=== PATIENT | female | born 2000 | race Two or more races ===

== ENCOUNTER 2024-11-08 07:49 | Emergency (ER) | payer MEDICAID, SELFPAY ==
[2024-11-08 07:49] VITALS: BMI 36.4
[2024-11-08 08:18] VITALS: BP 147/85; PULSE 103; RESP 18; TEMP 37.1; O2SAT 98; BMI 35.4
--- NOTE | 2024-11-08 08:22 | XR_ITS ---
Examination: Pelvic ultrasound, transabdominal, complete Technique: Transabdominal ultrasound of the pelvis performed using grayscale imaging Date and time of exam: November 08, 2024 0917 hours Comparison December 29, 2022 INDICATIONS: Onset of pelvic pain beginning one week ago FINDINGS: Uterus 8.2 x 3.2 x 4.9 cm Endometrial stripe 0.5 cm No uterine mass or intrauterine gestation Right ovary 2.6 x 2.6 x 2.0 cm arterial flow Left ovary 2.8 x 2.2 x 2.6 cm arterial flow Small bilateral ovarian follicles IMPRESSION: Negative examination
[2024-11-08 09:50] LABS: Basophils # (Auto) 0.1 Thou/mm3 (0.0-0.2); Basophils % (Auto) 1 % (0-2.5); Eosinophils # (Auto) 0.1 Thou/mm3 (0.0-0.5); Eosinophils % (Auto) 0 % (0-10); Hematocrit 41.5 % (36.0-46.0); Hemoglobin 14.4 g/dL (12.0-16.0); Immature Granulocytes % (Auto) 1 % (0-0); Immature Granulocytes Auto 0.08 Thou/mm3 (0.00-0.00); Lymphocytes # (Auto) 2.9 Thou/mm3 (1.0-4.8); Lymphocytes % (Auto) 21 % (10-50); Mean Corpuscular HGB Conc 34.7 g/dl (31.0-37.0); Mean Corpuscular Hemoglobin 28.3 pg (25.0-35.0); Mean Corpuscular Volume 82 fL (80-100); Monocytes # (Auto) 0.9 Thou/mm3 (0.0-0.8); Monocytes % (Auto) 7 % (0-12); Neutrophils # (Auto) 9.4 Thou/mm3 (1.8-7.7); Neutrophils % (Auto) 71 % (37-80); Nucleated Red Blood Cell % 0 /100 WBC (0); Platelet Count 370 Thou/mm3 (140-440); RDW Standard Deviation 37.8 fL (36.4-46.3); Red Blood Count 5.09 Miln/mm3 (4.00-5.20); White Blood Count 13.3 Thou/mm3 (3.6-11.0)
[2024-11-08 10:07] LABS: Alanine Aminotransferase 29 U/L (10-49); Albumin, Serum 5.2 gm/dL (3.5-5.0); Albumin/Globulin Ratio 1.6 (1.2-2.2); Alkaline Phosphatase 78 U/L (46-116); Anion Gap 9 (7-16); Aspartate Amino Transferase 18 U/L (0-34); BUN/Creatinine Ratio 9 Ratio (12-20); Bilirubin,Total 0.6 mg/dL (0.3-1.2); Blood Urea Nitrogen 7 mg/dL (9-23); Calcium 9.9 mg/dL (8.3-10.6); Calcium (Corrected) 9.9 mg/dL (8.5-10.1); Carbon Dioxide 25.1 mMol/L (20.0-31.0); Chloride 103 mMol/L (98-107); Creatinine (Component) 0.8 mg/dL (0.6-1.3); Estimated Creatinine Clearance 125.7 mL/min (>60); Globulin 3.2 gm/dL (2.3-3.5); Glucose 107 mg/dL (74-106); Lipase 31 U/L (12-53); Osmolality,Calculated 271 (275-295); Potassium 3.7 mMol/L (3.4-5.1); Sodium 137 mMol/L (136-145); Total Protein 8.4 gm/dL (5.7-8.2); eGFR > 60 See Note
--- NOTE | 2024-11-08 11:31 | PD.EDRME ---
Rapid Medical Screening Exam RME Arrival date/time: 11/08/24 07:49 24-year-old female presents emergency department complaint of abdominal pain and pelvic pain Chief Complaint: Abdominal Pain Time Seen by Provider: 11/08/24 07:56 Vital signs: Vital Signs Temperature 98.7 F 11/08/24 08:18 Pulse Rate 103 H 11/08/24 08:18 Respiratory Rate 18 11/08/24 08:18 Blood Pressure 147/85 H 11/08/24 08:18 Pulse Oximetry (%) 98 11/08/24 08:18 Oxygen Delivery Method Room Air 11/08/24 08:18
[2024-11-08 11:33] LABS: Collection Type, Urine Clean Catch
--- NOTE | 2024-11-08 11:35 | PD.EDABDPN ---
ED Abdominal Pain RME/HPI General Chief Complaint: Abdominal Pain Stated complaint: LOWER ABD. PAIN, COUGH BLOOD Time seen by provider: 11/08/24 07:56 Arrival date/time: 11/08/24 07:49 24 year old female present to emergency room with c/o of lower abdominal/pelvic pain for a few day. LOCATION: Lower abdominal tenderness. SEVERITY: Symptoms are described as being severe with limitations on activities of daily living QUALITY: Symptoms are described as being cramping CONTEXT: The patient is unable to identify any inciting events. DURATION/TIMING: The symptoms started approximately 2 day ago and have been waxing/waning but always present without ever completely resolving. ASSOCIATED SYMPTOMS: The patient is unable to identify any other associated symptoms. MODIFYING FACTORS: The patient is unable to identify any alleviating or aggravating symptoms. PERTINENT ROS: no fevers, no anorexia, no nausea or vomiting, no diarrhea, no ripping or tearing sensations, no syncope or presyncopal symptoms, denies trauma, denies genital pain REVIEW OF SYSTEMS: See History of Present Illness - with the exception of those mentioned in the history of present illness, all other systems reviewed and reported as negative GENERAL: In general the patient is awake, interactive, in an emergency department gurney. HEAD/EYES/EARS/NOSE/THROAT: normo-cephalic, atraumatic, mucus membranes are moist, anicteric, palpebral conjunctiva is pink, trachea is midline. CARDIOVASCULAR: regular rate and regular rhythm, no murmurs, heart sounds are not distant, strong pulses in all four extremities that are equal and symmetric bilateral upper and lower extremities, normal capillary refill. CHEST/PULMONARY: normal chest rise and fall, good air movement, clear to auscultation bilaterally, normal inspiratory to expiratory ratios without evidence of respiratory distress. NECK: No midline/Paraspinal tenderness, no step off ROM/Strenght intact No Kernig and bruzinski sign. No trauma ABDOMEN: soft, lower abdominal tenderness, no masses appreciated BACK: normal range of motion without pain. NEUROLOGICAL: cranio-facial features are symmetric, moves all four extremities equally without obvious limitations or weakness. EXTREMITY: no tenderness to palpation over the long bones or large joints of the bilateral upper and lower extremities, no joint swelling, no joint erythema, no signs of trauma, no unilateral leg swelling and no peripheral edema. SKIN: warm, dry, well-perfused, no jaundice, no rash, no telangiectasias or petechia. PSYCH: calm, cooperative, no evidence of psychosis or agitation RME / HPI RME / HPI narrative: 11/08/24 07:49 24-year-old female presents emergency department complaint of abdominal pain and pelvic pain Related Data Previous Rx's ?Medication ?Instructions ?Recorded acetaminophen 300 mg-codeine 15 mg 1 tab PO Q6H PRN pain #14 tabs 08/22/ tablet IBU 800 mg tablet (ibuprofen) 800 mg PO Q6H PRN pain #30 tabs 12/29/22 baclofen 10 mg tablet 10 mg PO BID #20 tabs 12/29/22 sulfamethoxazole 800 1 tab PO BID #20 tabs 12/29/22 mg-trimethoprim 160 mg tablet (Bactrim DS) Allergies Allergy/AdvReac Type Severity Reaction Status Date / Time No Known Allergies Allergy Verified 11/08/24 07:52 Course Course Course Narrative: Patient?s symptoms not typical for emergent causes of abdominal pain such as, but not limited to, appendicitis, abdominal aortic aneurysm, surgical biliary disease, pancreatitis, SBO, mesenteric ischemia, serious intra-abdominal bacterial illness. Presentation also not typical of gynecologic emergencies such as?TOA, Ovarian Torsion, PID. Not Ectopic. Doubt atypical ACS. Pt tolerating PO. Disposition: Patient will be discharged with strict return precautions and follow up with primary MD within 12-24 hours for further evaluation. Patient understands that this still may have an early presentation of an emergent medical condition such as appendicitis that will require a recheck. Quality Measures none Orders Category Date Time Status CT abdomen pelvis wo con Stat Exams 11/08/24 12:01 Completed US pelvic complete Stat Exams 11/08/24 08:22 Completed CBC Stat Lab 11/08/24 09:36 Completed Comprehensive Metabolic Panel Stat Lab 11/08/24 09:36 Completed HCG Qualitative,Urine Stat Lab 11/08/24 11:20 Completed Lipase Stat Lab 11/08/24 09:36 Completed UA, C/S IF [Urinalysis, C/S if Indicated] Stat Lab 11/08/24 11:20 Completed Vital Signs Vital signs: Vital Signs Temperature 98.7 F 11/08/24 08:18 Pulse Rate 103 H 11/08/24 08:18 Respiratory Rate 18 11/08/24 08:18 Blood Pressure 147/85 H 11/08/24 08:18 Pulse Oximetry (%) 98 11/08/24 08:18 Oxygen Delivery Method Room Air 11/08/24 08:18 Abdominal Pain MDM Patient data External records reviewed:: [facility] previous records Clinical information provided by:: patient Social determinants that could affect healthcare access:: none Patient has the following chronic illnesses:: none How is presenting disease/condition affected by chronic disease/condition?: uneffected by Evaluation data The following diagnostics were reviewed and interpreted by me:: lab results and radiology exam(s) Lab and/or radiology exams considered but not ordered:: none Interpretation Summary: cbc/cmp/urine no sign of infection, hcg negative ctIMPRESSION: No renal or ureteral calculi, no hydronephrosis Normal appendix us: FINDINGS: Uterus 8.2 x 3.2 x 4.9 cm Endometrial stripe 0.5 cm No uterine mass or intrauterine gestation Right ovary 2.6 x 2.6 x 2.0 cm arterial flow Left ovary 2.8 x 2.2 x 2.6 cm arterial flow Small bilateral ovarian follicles IMPRESSION: Negative examination Medications / Prescriptions Medications or Prescriptions considered but not ordered:: none Medication administrations:: none Consultations Consultation(s) initiated? (list below): No Diagnosis Differential diagnosis abdominal pain: abdominal pain, calculus of kidney, constipation, diverticulitis, gastroenteritis and other (, ovarian cyst ) Most likely diagnosis given after review of the tests above:: abd pain Admission Indicated Admission indicated?: not indicated Admission Request Was there a request for admission?: No Disposition Plan Disposition Plan: Discharge Discharge Attestation Discharge Attestation: The patient and all family members were given an opportunity to ask questions and understood the discharge instructions. Discharge instructions specifically effects, indications for sooner follow up or return to the emergency department, and the expected course of current diagnosis. Patient condition: Stable Discharge Plan Plan Patient Disposition: HOME (Self Care) Health Concerns: Follow with PMD as directed Take tylenol or motrin as need Return to ED if sx worsen Prescriptions/Referrals Prescriptions/Med Rec: No Action acetaminophen-codeine 300-15 mg tablet 1 tab PO Q6H PRN (Reason: pain) Qty: 14 0RF baclofen 10 mg tablet 10 mg PO BID Qty: 20 0RF sulfamethoxazole-trimethoprim [Bactrim DS] 800-160 mg tablet 1 tab PO BID Qty: 20 0RF ibuprofen [IBU] 800 mg tablet 800 mg PO Q6H PRN (Reason: pain) Qty: 30 0RF Referrals: Nehemias Ozuna MD [Primary Care Provider] - In 1 week Problem List Clinical Impression: Abdominal pain Patient/Caregiver Discharge Instructions Education Materials: Abdominal Pain Print Language: Martiniquais Stand Alone Forms: Martha Award Info., Patient Portal Info Letter
[2024-11-08 11:45] LABS: HCG Qualitative,Urine Negative
[2024-11-08 11:53] LABS: Bacteria,Urine 2+; Bilirubin,Urine Negative (Negative); Blood,Urine 1+ (Negative); Clarity,Urine Turbid (Clear/Hazy); Color,Urine Lt-Yellow (Lt Yel-Yel); Culture Indicated,Urine Contaminated; Glucose, Urine Negative (Negative); Ketones,Urine Negative (Negative); Leukocyte Esterase,Urine Negative (Negative); Nitrite,Urine Negative (Negative); PH,Urine 6.5 (5.0-7.0); Protein,Urine Negative (Neg - Trace); RBC,Urine 1 /hpf (0-3); Specific Gravity,Urine 1.007 (1.001-1.035); Squamous Epithelial Cell,Urine 16 /hpf (0-5); Urobilinogen,Urine Negative mg/dL (0.0-1.0); WBC,Urine 2 /hpf (0-5)
--- NOTE | 2024-11-08 12:01 | XR_ITS ---
Examination: CT abdomen and pelvis without contrast. Coronal 3-D reconstructions. Sagittal 2-D reconstructions. Date and time of exam:November 08, 2024 1208 hours INDICATIONS: Left-sided flank pain beginning one week ago CTDI: vol (mGy): 10.1 DLP: (mGycm): 574 Technique: Axial images of the abdomen have been obtained, 3 mm slice thickness Intravenous contrast material has not been administered. Low dose protocols were performed. One or more of the following dose reduction techniques were used; automated exposure control, adjustment of the mA and/or KV according to patient size, use of iterative reconstruction technique. Findings: No focal liver or splenic lesions No gallstones No pancreatic or adrenal mass No renal or ureteral calculi, no hydronephrosis Aorta normal size Normal appendix No bowel obstruction No pelvic mass No bladder mass or bladder calculi IMPRESSION: No renal or ureteral calculi, no hydronephrosis Normal appendix
== END 2024-11-08 13:35 | disposition home or self-care (01) ==
PROVIDERS: Nurse Practitioner Primary Care; Emergency Provider Emergency Medicine; PCP Family Medicine
DX: R10.2 Pelvic and perineal pain (principal)
CPT/HCPCS: 36415; 74176; 76856; 80053; 81001; 81025; 83690; 85025; 99284